=== PATIENT | male | born 1945 | race Caucasian/White ===

== ENCOUNTER → 2016-12-30 | Outpatient (CLI) | payer MEDICARE ==
[2015-03-06 16:03] VITALS: BP 122/74
[~2016-12-30] MED LIST: ASPI-630 PO; ATOR20TA58 PO; BUDE0.25 IH; BUPIVACAINE MPF 0.25% 10 ML VIAL. ONE; BUTA1CAP31 PO; CETI10CA PO; CLIN150C14 PO; CLOP75TA PO; HYDR115S2 PO; IBUP-1060 PO; IOHEXOL 180 MG/ML 10 ML VIAL. ONE; MELO15TA23 PO; MELO7.5T29 PO; NADO40TA PO; NADO40TA18 PO; OMEP10CA3 PO; OMEP40CA5 PO; ZOLP5TAB PO; methylPREDNISolone ACETATE 80 MG/ML VIAL. ONE
--- NOTE | 2016-12-30 12:51 | PAIN ---
DATE OF SERVICE: 12/30/2016 INITIAL CONSULTATION FOR PAIN CLINIC CHIEF COMPLAINT: Bilateral knee joint pain. HISTORY OF PRESENT ILLNESS: This is a 71-year-old male who presents with history of pain in the knees bilaterally, worse on the right than the left for many years, increasing with activity, walking, standing, especially with putting all his weight on his right leg, significant pain in both of the knees. The patient reports it as throbbing, intermittent in intensity, but changes during the day, worse with activity, worse with climbing stairs, putting all his weight on his knees, again much worse on the right than the left. The patient reports it awakens him from sleep about 2-3 times at night, especially when he is changing positions, ____ on his right side especially. The patient reports he has had some physical therapy in the past, multiple times as well as trigger point injections in the knee, which has helped in the past about 5 years ago, he did have a joint injection 5 years ago and this helped significantly. The patient reports no loss of motor function, but becoming much more noticeable with activity, especially when he is doing activities when he is on his knees. He was doing some roof work about 2 weeks ago, which significantly exacerbated the pain, again worse in the right knee than the left. The patient reports no loss of motor function, rates his disability rating from 0-10, 10 being the worst, is a 7 with family and home responsibilities and occupation, 9 with recreation, 6 with social activity, 8 with sexual behavior, 2 with self-care and 5 with life support activities. The patient reports no loss of motor function, but significant fatigability and difficulty with posture when the knees are most painful. PAST MEDICAL HISTORY: Significant for hearing loss, he is using hearing aids; hypertension, coronary artery disease with stents, arthritis and headaches. PREVIOUS SURGERY: Include hernia repair in 2001, surgical rotator cuff bilaterally and a melanoma excision in 2013. CURRENT MEDICATIONS: Include omeprazole, aspirin, budesonide, ibuprofen, Ambien, Nadolol, Zyrtec, Meloxicam, atorvastatin and Fiorinal. ALLERGIES: The patient has no known drug allergies. FAMILY HISTORY: Significant for no major medical problems or conditions he is aware of. SOCIAL HISTORY: The patient does not smoke, drinks a glass of wine rarely, maybe every 2 months or so. He is , lives with his spouse, is currently retired senior applications architect and lives locally in [place], [place]. REVIEW OF SYSTEMS: The patient's review of systems is positive for those items mentioned in history of present illness. All systems reviewed and otherwise negative. It is complete, full and well documented on the patient's chart. PHYSICAL EXAMINATION: VITAL SIGNS: The patient's blood pressure 137/87, pulse 79, respirations 18, temperature 94.5 degrees Fahrenheit, height is 5 feet 8 inches, weighs 220 pounds. GENERAL: The patient is awake, alert, oriented, appropriate, very pleasant demeanor. HEENT: Shows normocephalic, atraumatic. Extraocular movements are intact, symmetrical. Oral cavity, mucous membranes are moist and pink. Dentition is intact. NECK: Shows anterior throat supple without palpable lymphadenopathy noted. Swallow reflex is symmetrical. CHEST: Shows normal on inspection. Breath sounds are clear to auscultation bilaterally. HEART: Shows S1 and S2 clear. ABDOMEN: Obese, soft, nontender, nondistended. No palpable organomegaly is noted. No rebound or guarding demonstrated. BACK: Shows spine grossly midline. Normal appearing thoracic kyphosis, lumbar lordotic curvature. The patient has full rotational motion of cervical spine as well as lumbar spine. Lateral rotation of right and left as well as extension and flexion with no pain reported. No tenderness over the sacrum or sacroiliac regions. Lower extremities show deep tendon reflexes at 1+ in the patellar and tendo calcaneus tendons are equal. Motor exam is strong with 5/5 dorsiflexion, extension, quadriceps and hamstring flexion with evaluation of the patient's joint shows good passive motion with no ratcheting or popping both right and left knees and ankles with ____. Peripheral pulses are 2+ posterior tibial and dorsalis pedis pulses. No peripheral edema is noted. No clubbing, no cyanosis. Lower extremities are warm and dry to touch, equal in color and appearance with weightbearing. The patient shows tenderness with putting all of his weight on his right knee and stepping up on a stool with the right foot, this is also positive on the left with tenderness, but much more severe on the right side. The patient reports some radiating pain into the back of the knee and the back of the calf on the right side as well with this maneuver. The patient is walking with a normal appearing gait; however, does not have any assistive devices to help him ambulate. IMPRESSION: 1. This is a 71-year-old male with a long history of bilateral knee joint pain, much worse on the right than the left. 2. Plain films showing some degenerative arthritic changes in the bilateral knees, right greater than left. 3. History of hypertension. 4. Arthritis. PLAN: Options were discussed with the patient including conservative medical management, physical therapy, interventional techniques. He would like to pursue interventional techniques as he has done the physical therapies and other modalities. We discussed a right intra-articular knee joint injection using description as well as anatomical models to describe the procedure. Risks were then discussed including, but not limited to bleeding, infection, possibility of intravascular injection sequelae, spread of local anesthetic and numbness, exposure to fluoroscopy, side effects of steroid medication and poor results regarding pain control. The patient understands and wishes to proceed. The patient will return to clinic in approximately 2 weeks for followup, was counseled on return appointment, activity level and side effects to be aware of. DIAGNOSIS: Primary osteoarthritis, bilateral knees. PROCEDURE: Right intra-articular knee joint injection with fluoroscopic guidance under sterile prep and drape using local anesthetic. MEDICATION INJECTED: A total of 80 mg Depo-Medrol plus total of 2 mL of 0.25% bupivacaine and 1.5 mL of Isovue for contrast. CONDITION AT DISCHARGE: Stable. The patient tolerated procedure well, had no complications. MELLISA MI MD DR: TANVI/joaquim JOB#: [id number] / [id number]
== END | disposition home or self-care (01) ==
LOC: PNCL 08:24
PROVIDERS: ATTEND Anesthesiology
DX: M17.0 Bilateral primary osteoarthritis of knee (principal); H91.90 Unspecified hearing loss, unspecified ear; E78.00 Pure hypercholesterolemia, unspecified; I10 Essential (primary) hypertension; E66.9 Obesity, unspecified; Z68.45 Body mass index [BMI] 70 or greater, adult; Z86.69 Personal history of other diseases of the nervous system and sense organs; Z72.89 Other problems related to lifestyle
CPT/HCPCS: 20610; J1040; J3490

== ENCOUNTER → 2017-05-05 | Outpatient (CLI) | payer MEDICARE ==
[2015-03-06 16:03] VITALS: BP 122/74
--- NOTE | 2017-05-05 09:07 | PAIN ---
DATE OF SERVICE: 05/05/2017 PROGRESS NOTE FOR PAIN CLINIC DIAGNOSIS: Right knee pain with primary osteoarthritis, right knee. HISTORY OF PRESENT ILLNESS: The patient is a 71-year-old male who returns for followup status post knee injection on the right in 12/30/2016. The patient did very well with this, about 80% improvement is now about 50% beginning to be more painful with walking, standing, especially climbing stairs going up and down stairs or putting all his weight on his right leg, some left knee pain as well but not nearly as painful as the right side. The patient reports it is 8 on a scale 10 at its worst, 6 on average, is 4 at its least and is 4 today. The patient reports it is aching, dull, sometimes shooting and sharp but usually just dull and aching with weightbearing. The patient reports better with sitting or lying down, does not awaken him from sleep at night and usually, it does as when he is lying on his right side. He can reposition to get back to sleep. PHYSICAL EXAMINATION: VITAL SIGNS: Today, the patient's blood pressure 138/72, pulse 66, respirations are 16, temperature is 98.2 degrees Fahrenheit, height is 5 feet 10 inches and weight is 223 pounds. GENERAL: He is awake, alert, oriented, appropriate and very pleasant demeanor. HEENT: Head shows normocephalic and atraumatic. Extraocular muscles are intact and symmetrical. Oral cavity: Mucous membranes moist and pink. Dentition is intact. NECK: Shows anterior throat supple without palpable lymphadenopathy noted. Swallow reflex symmetrical. CHEST: Normal with inspection. Breath sounds are clear to auscultation bilaterally. HEART: Shows S1 and S2 clear. ABDOMEN: Soft, nontender and nondistended. BACK: Shows spine grossly in the midline. Normal appearing thoracic kyphosis and lumbar lordotic curvature. Lower extremities show deep tendon reflexes at 1+ in the patellar and tendo calcaneus tendons. Motor exam is strong with 5/5 dorsiflexion, extension, quadriceps and hamstring flexion. Peripheral pulses are 2+ bilaterally. No peripheral edema is noted. The patient's left knee shows good range of motion as does the right without weightbearing without specific pain over the patella, medial and lateral components with palpation with weightbearing. The patient reports significant pain in the right knee and mild pain in the left knee, worse with flexion and squatting maneuver and especially with the patient all his weight on his right leg. Options were discussed with the patient. The patient's old chart was reviewed as well as his current medication regimen updated. Current review of systems updated today as well. We will proceed with a right intraarticular knee joint injection with fluoroscopic guidance today. Risks were again discussed including but not limited to bleeding, infection, possibility of intravascular injection sequelae, spread of local anesthetic and numbness, side effects of steroid medication, exposure to fluoroscopy and poor results regarding pain control. The patient understands and wished to proceed. The patient will return to clinic in approximately 2 weeks for followup, was counseled on return appointment, activity level and side effects to be aware of. DIAGNOSIS: Primary osteoarthritis, right knee joint. PROCEDURE: Right intraarticular knee joint injection with a C-arm fluoroscopic guidance under sterile prep and drape using local anesthetic. MEDICATION INJECTED: A total of 120 mg Depo-Medrol plus 3 mL of preservative-free normal saline and 2 mL of Isovue for contrast. CONDITION AT DISCHARGE: Stable. The patient tolerated the procedure well, had no complications. MELLIAS MI MD DR: TANVI/joaquim JOB#: [id number] / [id number]
== END | disposition home or self-care (01) ==
LOC: PNCL 07:39
PROVIDERS: ATTEND Anesthesiology
DX: M17.11 Unilateral primary osteoarthritis, right knee (principal); I10 Essential (primary) hypertension; E66.9 Obesity, unspecified; Z68.45 Body mass index [BMI] 70 or greater, adult; E78.00 Pure hypercholesterolemia, unspecified; H91.90 Unspecified hearing loss, unspecified ear; Z72.9 Problem related to lifestyle, unspecified; Z86.69 Personal history of other diseases of the nervous system and sense organs
CPT/HCPCS: 20610; J1040; J3490

== ENCOUNTER → 2017-05-23 | Outpatient (CLI) | payer MEDICARE ==
[2015-03-06 16:03] VITALS: BP 122/74
--- NOTE | 2017-05-23 13:32 | PAIN ---
DATE OF SERVICE: 05/23/2017 DIAGNOSES: Right knee joint pain with primary osteoarthritis, right knee joint. HISTORY OF PRESENT ILLNESS: The patient is a 71-year-old male who returns for followup status post right knee joint cortisone injection on 05/05/2017. The patient did very well with approximately 80% improvement in the right knee for a full 2 days with no pain and then, the pain began to return, is about 40% improved overall at this time. About 2 weeks later, the patient has had no new motor or sensory deficits or other complaints, still pain in the right knee with standing, weightbearing, climbing stairs especially and he did some this over the holiday weekend, which caused the pain to become much more noticeable. The patient reports pain is 7 on a scale 10 at its worse, 5 on average and 3 at its least, is a 3 today. The patient reports it is aching and dull, becoming more constant, again worse with weightbearing, standing, climbing stairs. The patient reports no new motor or sensory deficits or other complaints, awakens him from sleep, but only occasionally, not every night, about every 6 hours and can reposition or apply heat to his knee and it does help him get back to sleep. The patient reports no other findings. PHYSICAL EXAMINATION: VITAL SIGNS: Today, the patient's blood pressure is 132/80, pulse 63, respirations 17, temperature is 98.0 degrees Fahrenheit, height is 5 feet 8 inches, weight is 222 pounds. GENERAL: The patient is awake, alert, oriented, appropriate, very pleasant demeanor. HEENT: Shows normocephalic, atraumatic. Extraocular movements are intact, symmetrical. Oral cavity: Mucous membranes moist and pink. Dentition is intact. NECK: Shows anterior throat supple without palpable lymphadenopathy noted. Swallow reflex is symmetrical. CHEST: Normal with inspection. Breath sounds are clear to auscultation bilaterally. HEART: Shows S1, S2 clear. No murmurs auscultated. ABDOMEN: Soft, nontender, nondistended. No palpable organomegaly is noted. No rebound or guarding demonstrated. BACK: Shows spine grossly in midline. The patient's lower extremities show deep tendon reflexes at 1+ in the patellar and tendo calcaneus tendons. Motor exam is 5/5 with dorsiflexion and extension. The patient's right knee shows some moderate tenderness with even passive motion, but good hinge motion without ratcheting with weightbearing shows significant pain with putting all the weight on his right knee with weight only on the right knee, slightly tender in the left knee with only very minimally with all his weightbearing on the left knee. Peripheral pulses are 1+ in the posterior tibial distribution. No peripheral edema is noted. Options were discussed with the patient. The patient's old chart was reviewed as his current medication regimen and updated. Current review of systems is updated today as well. We will proceed with a right intraarticular knee joint injection with Synvisc with fluoroscopic guidance. Risks were again discussed including, but not limited to bleeding, infection, possibility of intravascular injection sequelae, spread of local anesthetic and numbness, side effects of exposure to fluoroscopy as well as Synvisc injection and poor results regarding pain control. The patient understands and wished to proceed. The patient will return to clinic in approximately 1 week for followup, was counseled to return appointment, activity level and side effects to be aware of. DIAGNOSIS: Primary osteoarthritis, right knee joint. PROCEDURE: Right knee Synvisc injection with fluoroscopic guidance under sterile prep and drape using local anesthetic. MEDICATIONS INJECTED: 2 mL of Synvisc and 1.5 mL of Isovue for contrast after negative aspiration. CONDITION AT DISCHARGE: Stable. The patient tolerated procedure well, had no complications. MELLISA MI MD DR: TANVI/joaquim JOB#: [id number] / [id number]
== END | disposition home or self-care (01) ==
LOC: PNCL 10:36
PROVIDERS: ATTEND Anesthesiology
DX: M17.11 Unilateral primary osteoarthritis, right knee (principal); E78.00 Pure hypercholesterolemia, unspecified; I10 Essential (primary) hypertension; E66.9 Obesity, unspecified; K21.9 Gastro-esophageal reflux disease without esophagitis; Z86.69 Personal history of other diseases of the nervous system and sense organs; Z72.89 Other problems related to lifestyle; Z87.39 Personal history of other diseases of the musculoskeletal system and connective tissue
CPT/HCPCS: 20610; 77002; J1040; J3490

== ENCOUNTER → 2017-05-30 | Outpatient (CLI) | payer MEDICARE ==
[~2017-05-30] MED LIST changes: -ASPI-630 PO; -ATOR20TA58 PO; -BUDE0.25 IH; -BUPIVACAINE MPF 0.25% 10 ML VIAL. ONE; -BUTA1CAP31 PO; -CETI10CA PO; -CLIN150C14 PO; -CLOP75TA PO; -HYDR115S2 PO; -IBUP-1060 PO; +IOHEXOL 180 MG/ML 10 ML VIAL.; -IOHEXOL 180 MG/ML 10 ML VIAL. ONE; -MELO15TA23 PO; -MELO7.5T29 PO; -NADO40TA PO; -NADO40TA18 PO; -OMEP10CA3 PO; -OMEP40CA5 PO; -ZOLP5TAB PO; -methylPREDNISolone ACETATE 80 MG/ML VIAL. ONE
== END | disposition home or self-care (01) ==
LOC: PNCL 13:31
DX: M17.11 Unilateral primary osteoarthritis, right knee (principal); E78.00 Pure hypercholesterolemia, unspecified; I10 Essential (primary) hypertension; K21.9 Gastro-esophageal reflux disease without esophagitis; Z87.39 Personal history of other diseases of the musculoskeletal system and connective tissue; Z86.69 Personal history of other diseases of the nervous system and sense organs; Z72.89 Other problems related to lifestyle
CPT/HCPCS: 20610; 77002

== ENCOUNTER → 2017-06-06 | Outpatient (CLI) | payer MEDICARE ==
[~2017-06-06] MED LIST changes: +HYLAN G-F 20 16 MG/2 ML SYRINGE.
== END | disposition home or self-care (01) ==
LOC: PNCL 09:13
DX: M17.0 Bilateral primary osteoarthritis of knee (principal); E78.00 Pure hypercholesterolemia, unspecified; K21.9 Gastro-esophageal reflux disease without esophagitis; E66.9 Obesity, unspecified; Z86.69 Personal history of other diseases of the nervous system and sense organs; Z72.89 Other problems related to lifestyle
CPT/HCPCS: 20610; 77002

== ENCOUNTER → 2017-06-13 | Outpatient (CLI) | payer MEDICARE ==
[~2017-06-13] MED LIST changes: -HYLAN G-F 20 16 MG/2 ML SYRINGE.
== END | disposition home or self-care (01) ==
LOC: PNCL 09:56
DX: M17.12 Unilateral primary osteoarthritis, left knee (principal); E78.00 Pure hypercholesterolemia, unspecified; I10 Essential (primary) hypertension; E66.9 Obesity, unspecified; K21.9 Gastro-esophageal reflux disease without esophagitis; Z86.69 Personal history of other diseases of the nervous system and sense organs; Z87.39 Personal history of other diseases of the musculoskeletal system and connective tissue; Z72.89 Other problems related to lifestyle
CPT/HCPCS: 20610; 77002

== ENCOUNTER → 2017-06-21 | Outpatient (CLI) | payer MEDICARE | END | disposition home or self-care (01) | LOC: PNCL 09:19 | DX: M17.12 Unilateral primary osteoarthritis, left knee (principal); E78.00 Pure hypercholesterolemia, unspecified; I10 Essential (primary) hypertension; Z87.39 Personal history of other diseases of the musculoskeletal system and connective tissue; Z72.89 Other problems related to lifestyle; Z86.69 Personal history of other diseases of the nervous system and sense organs | CPT/HCPCS: 20610; 77002 ==

== ENCOUNTER → 2017-06-29 | Outpatient (CLI) | payer MEDICARE ==
[~2017-06-29] MED LIST changes: +HYLAN G-F 20 16 MG/2 ML SYRINGE.
== END | disposition home or self-care (01) ==
LOC: PNCL 11:08
DX: M17.12 Unilateral primary osteoarthritis, left knee (principal); E78.00 Pure hypercholesterolemia, unspecified; I10 Essential (primary) hypertension; K21.9 Gastro-esophageal reflux disease without esophagitis; E66.9 Obesity, unspecified; Z72.89 Other problems related to lifestyle; Z86.69 Personal history of other diseases of the nervous system and sense organs
CPT/HCPCS: 20610; 77002; Q9965